=== PATIENT | male | born 1990 | race Two or more races ===

== ENCOUNTER 2020-09-06 21:37 | Inpatient (IN) | payer OTHER ==
[~2020-09-06] VITALS: Ht 172.7 cm; Wt 112.9 kg
[2020-09-06] MEDS ORDERED: ONDANSETRON HCL 4MG/2ML INJ IV ONE (22:45)
[2020-09-06] MEDS ORDERED: ASPIRIN 81MG TABLET PO ONE (22:45)
[2020-09-06 23:01] LABS: BASOPHILS % 0.7 % (0.0-2.0); EOSINOPHILS % 3.2 % (0.0-5.0); HEMATOCRIT. 45.8 % (42.0-52.0); HEMOGLOBIN. 15.7 g/dL (14.0-18.0); LYMPHOCYTES % 25.4 % (20.0-50.0); MEAN CORPUSCULAR HEMOGLOBIN 28.3 pg (28.0-32.0); MEAN CORPUSCULAR VOLUME 82.5 fL (80.0-94.0); MEAN PLATELET VOLUME 7.5 fl (7.4-10.4); MONOCYTES % 10.2 % (2.0-8.0); NEUTROPHILS % 60.5 % (40.0-76.0); PLATELET 356 x1000/uL (130-400); RED BLOOD CELL COUNT 5.55 mill/uL (4.7-6.1); RED CELL DISTRIBUTION WIDTH 13.3 % (11.6-14.6)
[2020-09-06 23:07] LABS: CHLORIDE 107 mEq/L (98-107)
[2020-09-06 23:12] LABS: D-DIMER 1.64 mg/L FEU (<0.50); PARTIAL THROMBOPLASTIN TIME 29.5 sec (23.4-31.0)
[2020-09-06] MEDS ORDERED: PANTOPRAZOLE 80 MG in SODIUM CHLORIDE 0.9% 100 ML IV SCH (23:15)
[2020-09-06] MEDS ORDERED: PANTOPRAZOLE SODIUM 40 MG/VIAL IV ONE (23:15)
[2020-09-06] MEDS ORDERED: ENOXAPARIN 120MG/0.8ML SYR SUBCUT ONE (23:30)
[2020-09-07] VITALS (7 sets, daily range): BP systolic 100–130; BP diastolic 46–88
[2020-09-07] MEDS ORDERED: ENOXAPARIN 80MG/0.8ML SYR SUBCUT SCH (00:15)
[2020-09-07] MEDS ORDERED: ACETAMINOPHEN 325MG TABLET PO PRN (00:15)
[2020-09-07] MEDS ORDERED: CLONIDINE 0.1MG TABLET PO PRN (00:15)
[2020-09-07] MEDS ORDERED: HYDROCODONE/ACETAMINOPHEN 5/325MG TABLET PO PRN (00:15)
[2020-09-07] MEDS ORDERED: LORAZEPAM 2MG/ML CPJ IV PRN (00:15)
[2020-09-07] MEDS ORDERED: IPRATROPIUM/ALBUTEROL 0.5-3(2.5)MG/3ML NEB NEB PRN (00:15)
[2020-09-07] MEDS ORDERED: MORPHINE SULFATE 2 MG/ML CPJ (NOT FOR IM USE) IV PRN (00:15)
[2020-09-07] MEDS ORDERED: ONDANSETRON HCL 4MG/2ML INJ IV PRN (00:15)
[2020-09-07] MEDS: POTASSIUM CHLORIDE 20MEQ TABLET SR PO SCH ×2 (01:47→10:07)
[2020-09-07] MEDS ORDERED: PROT20 MT (02:41)
[2020-09-07] MEDS ORDERED: APIX5TAB PO (02:41)
[2020-09-07] MEDS ORDERED: IOHEXOL-350 100 ML BOTTLE ONE (06:18)
[2020-09-07 07:24] LABS: CREATINE KINASE 126 IU/L (39-308)
[2020-09-07 07:25] LABS: CREATINE KINASE 124 IU/L (39-308); CREATINE KINASE MB FRACTION < 1.0 ng/mL (0.5-3.6)
[2020-09-07 07:26] LABS: CREATINE KINASE MB FRACTION < 1.0 ng/mL (0.5-3.6)
[2020-09-07] MEDS: FOLIC ACID 1MG TABLET PO SCH (10:07)
[2020-09-07] MEDS: ENOXAPARIN 120MG/0.8ML SYR SUBCUT SCH ×2 (10:08→21:40)
[2020-09-07] MEDS ORDERED: IPRATROPIUM/ALBUTEROL 0.5-3(2.5)MG/3ML NEB HHN PRN (23:45)
[2020-09-08] VITALS: BP 116/68
[2020-09-08 04:00] VITALS: BP 103/66
[2020-09-08 07:17] LABS: CHLORIDE 107 mEq/L (98-107)
[2020-09-08 07:20] LABS: BASOPHILS % 0.4 % (0.0-2.0); EOSINOPHILS % 3.6 % (0.0-5.0); HEMATOCRIT. 46.1 % (42.0-52.0); HEMOGLOBIN. 15.7 g/dL (14.0-18.0); MEAN CORPUSCULAR HEMOGLOBIN 28.5 pg (28.0-32.0); MEAN CORPUSCULAR VOLUME 83.6 fL (80.0-94.0); MEAN PLATELET VOLUME 7.5 fl (7.4-10.4); MONOCYTES % 8.8 % (2.0-8.0); NEUTROPHILS % 62.2 % (40.0-76.0); PLATELET 319 x1000/uL (130-400); RED BLOOD CELL COUNT 5.52 mill/uL (4.7-6.1); RED CELL DISTRIBUTION WIDTH 13.2 % (11.6-14.6)
[2020-09-08 07:27] LABS: PHOSPHORUS 4.3 mg/dL (2.5-4.9)
[2020-09-08 08:00] VITALS: BP_SYST 100; BP_SYST 117; BP_DIAS 62
[2020-09-08] MEDS: FOLIC ACID 1MG TABLET PO SCH (08:56)
[2020-09-08] MEDS: POTASSIUM CHLORIDE 20MEQ TABLET SR PO SCH (08:56)
[2020-09-08] MEDS: ENOXAPARIN 120MG/0.8ML SYR SUBCUT SCH (08:56)
[2020-09-08 12:00] VITALS: BP 128/83
[2020-09-08 13:55] VITALS: BP 128/83
[2020-09-09 17:06] LABS: ANTI-NUCLEAR ANTIBODIES DIRECT Negative (Negative)
[2020-09-10 04:16] LABS: ANTI-CARDIOLIPIN AB IGA < 9 APL U/mL (0-11); ANTI-CARDIOLIPIN AB IGG < 9 GPL U/mL (0-14)
== END 2020-09-08 15:50 | disposition home or self-care (01) | DRG 175 ==
LOC: ER 21:37 → 8WST 23:52 → ENRESERV 09-07 00:04
PROVIDERS: ADMIT Internal Medicine Nephrology; ATTEND Internal Medicine Nephrology
DX: I26.99 Other pulmonary embolism without acute cor pulmonale (principal); J96.00 Acute respiratory failure, unspecified whether with hypoxia or hypercapnia; I82.402 Acute embolism and thrombosis of unspecified deep veins of left lower extremity; D68.69 Other thrombophilia; E66.9 Obesity, unspecified; I27.24 Chronic thromboembolic pulmonary hypertension; D72.829 Elevated white blood cell count, unspecified; E87.6 Hypokalemia; I27.20 Pulmonary hypertension, unspecified; Z86.711 Personal history of pulmonary embolism; Z68.37 Body mass index [BMI] 37.0-37.9, adult; Z86.718 Personal history of other venous thrombosis and embolism; Z87.891 Personal history of nicotine dependence; Z79.899 Other long term (current) drug therapy
CPT/HCPCS: 36415; 71045; 71275; 80048; 80053; 82550; 82553; 83735; 83880; 84100; 84484; 85025; 85379; 86038; 86147; 86160; 93005; 93306; 93970; 99285; C9113; J1650; J2405; J7050; Q9967